=== PATIENT | female | born 1975 | race Two or more races ===

== ENCOUNTER 2023-08-26 10:11 | Emergency (ER) | payer OTHER ==
[~2023-08-26] VITALS: Ht 167.6 cm; Wt 113.9 kg
[2023-08-26 11:21] LABS: HEMATOCRIT 36.5 % (36.0-45.00); HEMOGLOBIN 12.2 g/dL (12.0-15.00); MEAN CELL VOLUME 80.8 fL (80.00-100.00); MEAN CORPUSCULAR HGB CONC 33.5 g/dl (32.0-36.0); PLATELET COUNT 281 K/uL (150-450); RED BLOOD COUNT 4.51 M/uL (4.00-6.00)
[2023-08-26 11:44] LABS: CALCIUM 9.4 mg/dL (8.5-10.1); CREATININE SERUM 0.96 mg/dL (0.55-1.02); GFR 62.03; POTASSIUM 4.07 mEq/L (3.5-5.1)
[2023-08-26 12:28] LABS: PH,URINE 5.5 (5.0-8.0); URINE APPEARANCE Clear; URINE BILIRRUBIN Negative (NEGATIVE); URINE BLOOD Negative; URINE COLOR Yellow; URINE GLUCOSE Negative (NEGATIVE); URINE LEUKOCYTE Trace; URINE NITRATE Negative; URINE PROTEIN Negative (NEGATIVE); URINE UROBILINOGEN 0.2 E.U./dl
[2023-08-26 12:29] LABS: URINE BACTERIA 1497.6 uL (0.0-1933); URINE EPITHELIAL CELLS 12.9 uL (0.0-38.8); URINE WBC 29.5 uL (0.0-23.2)
[2023-08-26 12:33] LABS: URINE RBC 1.4 uL (0.0-20.8)
== END 2023-08-26 20:21 | disposition home or self-care (01) ==
LOC: ER 10:11
PROVIDERS: Emergency Medicine
DX: K57.30 Diverticulosis of large intestine without perforation or abscess without bleeding (principal)

== ENCOUNTER → 2025-10-23 | Emergency (ER) | payer OTHER ==
[~2025-10-23] VITALS: Ht 167.6 cm; Wt 86.2 kg
[~2025-10-23] MED LIST: 0.9 % SODIUM CHLORIDE 1,000 ML IV ONE; BIOTINEX1 EACH PO; CEFTRIAXONE SODIUM 2,000 MG VIAL IV ONE; CEFTRIAXONE SODIUM 2,000 MG VIAL ONE; CIPROFLOXACIN500 MG PO; KETOROLAC TROMETHAMINE 30 MG VIAL IU ONE; KETOROLAC TROMETHAMINE 30 MG VIAL ONE; METRONIDAZOLE500 MG PO; OZEMPIC0.25 MG/02 SQ
[2025-10-23 08:15] VITALS: BP 92/64; O2SAT 98
[2025-10-23 10:06] LABS: URINE APPEARANCE Clear; URINE BILIRRUBIN Negative (NEGATIVE); URINE BLOOD Negative; URINE COLOR Yellow; URINE GLUCOSE Negative (NEGATIVE); URINE KETONE Negative (NEGATIVE); URINE LEUKOCYTE Large; URINE NITRATE Negative; URINE PROTEIN Negative (NEGATIVE); URINE UROBILINOGEN 0.2 E.U./dl
[2025-10-23 10:10] LABS: URINE BACTERIA 1912.5 uL (0.0-1933); URINE EPITHELIAL CELLS 62.4 uL (0.0-38.8); URINE RBC 6.0 uL (0.0-20.8); URINE WBC 390.6 uL (0.0-23.2)
[2025-10-23 10:27] LABS: BASO % 0.5 % (0.1-1.2); EOS # 0.05 (0.04-0.54); EOS % 0.5 % (0.7-7.0); LYMPH # 2.26 (1.18-3.74); LYMPH % 21.3 % (19.3-53.1); MEAN PLATELET VOLUME 8.40 fl (9.4-12.4); MONO # 1.08 (0.24-0.82); MONO % 10.2 % (4.7-12.5); NEUT # 7.14 (1.56-6.13); NEUT % 67.2 % (34.0-71.1); RED CELL DISTRIBUTION WIDTH 14.6 % (11.6-14.4)
[2025-10-23 10:52] LABS: URINE CAST 0.00 uL (0.0-1.40)
[2025-10-23 10:53] LABS: TYPE CELLS SQUAMOUS
[2025-10-23 11:08] LABS: BUN CREA RATIO 11.0 (7.0-25.0); CREATININE SERUM 0.82 mg/dL (0.55-1.02); GFR 73.79; GLUCOSE FASTING 96.0 mg/dL (65-100); OSMOLALITY SERUM 280.0 MOSM/KG (275-295)
== END | disposition home or self-care (01) ==
LOC: ER 07:36
PROVIDERS: Emergency Medicine
DX: K57.92 Diverticulitis of intestine, part unspecified, without perforation or abscess without bleeding (principal); R10.20 Pelvic and perineal pain unspecified side; R10.9 Unspecified abdominal pain
CPT/HCPCS: 36415; 74177; Q9965